=== PATIENT | male | born 2000 | race Two or more races ===

== ENCOUNTER 2022-01-31 03:51 | Emergency (ER) | payer MEDICAID ==
[~2022-01-31] VITALS: Ht 180.3 cm; Wt 88.0 kg
[2022-01-31 04:04] VITALS: BP 122/52
[2022-01-31] MEDS ORDERED: LIDOCAINE HCL 1% 20ML VIAL (Pyxis) INJ INFIL ONE (05:30)
[2022-01-31] MEDS ORDERED: TETANUS, DIPHTHERIA, PERTUSSIS VAC/PF 0.5ML (>10YR OLD) IM ONE (05:30)
[2022-01-31] MEDS ORDERED: IBUPROFEN 600MG TABLET PO ONE (05:30)
[2022-01-31] MEDS ORDERED: AMOX-494 MT (07:18)
[2022-01-31] MEDS ORDERED: IBUP-2029 MT (07:18)
== END 2022-01-31 07:29 | disposition home or self-care (01) ==
LOC: ER 03:51
DX: S01.511A Laceration without foreign body of lip, initial encounter (principal); Y08.89XA Assault by other specified means, initial encounter; Y93.89 Activity, other specified; Y92.89 Other specified places as the place of occurrence of the external cause; Y99.8 Other external cause status
CPT/HCPCS: 70450; 70486; 90471; 90715; 99284; Z7610